=== PATIENT | female | born 1990 | race Two or more races ===

== ENCOUNTER 2024-01-26 21:04 | Emergency (ER) | payer SELFPAY ==
[~2024-01-26] VITALS: Ht 149.9 cm; Wt 68.2 kg
[2024-01-26 21:07] VITALS: TEMP 98.3
[2024-01-26 21:55] LABS: BASOPHILS % (AUTO) 0.8 % (0.0-2.0); HEMATOCRIT 39.1 % (36-46); LYMPHOCYTES # (AUTO) 2.9 K/uL (1.0-4.8); LYMPHOCYTES % (AUTO) 33.3 % (22.0-44.0); MEAN CORPUSCULAR HEMOGLOBIN 28.5 pg (26.0-34.0); MEAN CORPUSCULAR HGB CONC 33.4 G/dL (31.0-37.0); MEAN CORPUSCULAR VOLUME 86 fL (80-100); MONOCYTES # (AUTO) 0.8 K/uL (0.1-1.0); MONOCYTES % (AUTO) 8.8 % (2.0-9.0); NEUTROPHILS # (AUTO) 4.7 K/uL (1.8-7.7); NEUTROPHILS % (AUTO) 53.1 % (40.0-70.0); PLATELET COUNT (AUTO) 301 K/uL (150-450); RED BLOOD CELL COUNT(AUTO) 4.57 MIL/uL (4.00-5.20); RED CELL DISTRIBUTION WIDTH 14.7 % (11.5-14.5); WHITE BLOOD COUNT (AUTO) 8.9 K/uL (4.5-11.0)
[2024-01-26 22:03] LABS: APPEARANCE,URINE CLEAR (CLEAR); BILIRUBIN,URINE NEGATIVE (NEGATIVE); COLOR,URINE LIGHT YELLOW (YELLOW); GLUCOSE, URINE (UA) >=1000 mg/dL (NEGATIVE); KETONES,URINE TRACE mg/dL (NEGATIVE); LEUKOCYTE ESTERASE ,URINE NEGATIVE (NEGATIVE); NITRATE,URINE NEGATIVE (NEGATIVE); OCCULT BLOOD,URINE NEGATIVE (NEGATIVE); PH,URINE 6.5 (5.0-8.0); PROTEIN,URINE NEGATIVE (NEGATIVE); SPECIFIC GRAVITIY, URINE 1.039 (1.003-1.030); UROBILINOGEN,URINE <=1.0 mg/dL (<=1.0)
[2024-01-26 22:21] LABS: BACTERIA,URINE None Seen /HPF (None Seen); RBC,URINE 0-2 /HPF (0-2); WBC,URINE 0-2 /HPF (0-5)
[2024-01-26 22:54] LABS: ANION GAP 8 mmol/L (8-16); CALCIUM, TOTAL 9.4 mg/dL (8.8-10.5); CARBON DIOXIDE 28 mmol/L (22-29); CHLORIDE 95 mmol/L (98-107); CREATININE 0.84 mg/dL (0.60-1.30); GLOMERULAR FILTR. RATE CALC > 60 mL/min (>60); GLUCOSE,RANDOM 333 mg/dL (70-110); POTASSIUM 3.8 mmol/L (3.5-5.1); SODIUM SERUM 131 mmol/L (136-145); UREA NITROGEN, BLOOD 9 mg/dL (7-18)
[2024-01-26 22:59] LABS: ALANINE AMINOTRANSFERASE 20 U/L (12-78); ALBUMIN 3.4 g/dL (3.4-5.0); ALKALINE PHOSPHATASE 148 U/L (46-116); ASPARTATE AMINOTRANSFERASE 10 U/L (15-37); BILIRUBIN,TOTAL 0.2 mg/dL (0.1-1.0); LIPASE 35 U/L (16-77); TOTAL PROTEIN, SERUM 7.4 g/dL (6.4-8.2)
[2024-01-26] MEDS: KETOROLAC TROMETHAMINE 60 MG/2 ML VIAL IM ONE (23:10)
[2024-01-26 23:16] LABS: BILIRUBIN,DIRECT < 0.05 mg/dL (0.00-0.20)
[2024-01-27] VITALS: BP 111/70; PULSE 78; RESP 17; O2SAT 99
[2024-01-27] MEDS ORDERED: FAMO20 PO
[2024-01-27] MEDS ORDERED: IBUP-1492 PO
== END 2024-01-27 00:21 | disposition home or self-care (01) ==
LOC: EMS 21:04
DX: R10.84 Generalized abdominal pain (principal); Z98.890 Other specified postprocedural states; Z88.5 Allergy status to narcotic agent; R73.9 Hyperglycemia, unspecified
CPT/HCPCS: 99283; 80048; 80076; 81001; 82962; 83690; 84703; 85025; 36415; 96372; J1885

== ENCOUNTER 2024-02-14 10:43 | Emergency (ER) | payer OTHER ==
[~2024-02-14] VITALS: Ht 162.6 cm; Wt 68.2 kg
[~2024-02-14 10:43] MED LIST: FAMO20 PO; IBUP-1492 PO
[2024-02-14 11:25] VITALS: TEMP 97.9
[2024-02-14] MEDS: ONDANSETRON HCL 4 MG/2 ML VIAL IVP ONE (12:45)
[2024-02-14] MEDS: SODIUM CHLORIDE 0.9% 1,000 ML IV ONE (12:45)
[2024-02-14] MEDS: KETOROLAC TROMETHAMINE 30 MG/ML VIAL IVP ONE (12:45)
[2024-02-14 13:00] LABS: HEMATOCRIT 40.3 % (36-46); HEMOGLOBIN 13.8 g/dL (12.0-16.0); MEAN CORPUSCULAR HEMOGLOBIN 28.8 pg (26.0-34.0); MEAN CORPUSCULAR HGB CONC 34.4 G/dL (31.0-37.0); MEAN CORPUSCULAR VOLUME 84 fL (80-100); PLATELET COUNT (AUTO) 257 K/uL (150-450); RED BLOOD CELL COUNT(AUTO) 4.81 MIL/uL (4.00-5.20); RED CELL DISTRIBUTION WIDTH 14.9 % (11.5-14.5); WHITE BLOOD COUNT (AUTO) 10.7 K/uL (4.5-11.0)
[2024-02-14 13:15] LABS: ANION GAP 9 mmol/L (8-16); CALCIUM, TOTAL 8.1 mg/dL (8.8-10.5); CARBON DIOXIDE 25 mmol/L (22-29); CHLORIDE 100 mmol/L (98-107); CREATININE 0.67 mg/dL (0.60-1.30); GLOMERULAR FILTR. RATE CALC > 60 mL/min (>60); GLUCOSE,RANDOM 349 mg/dL (70-110); SODIUM SERUM 134 mmol/L (136-145); UREA NITROGEN, BLOOD 12 mg/dL (7-18)
[2024-02-14 13:19] LABS: APPEARANCE,URINE CLEAR (CLEAR); BILIRUBIN,URINE NEGATIVE (NEGATIVE); COLOR,URINE LIGHT YELLOW (YELLOW); GLUCOSE, URINE (UA) >=1000 mg/dL (NEGATIVE); KETONES,URINE 40-60 mg/dL (NEGATIVE); LEUKOCYTE ESTERASE ,URINE NEGATIVE (NEGATIVE); NITRATE,URINE NEGATIVE (NEGATIVE); OCCULT BLOOD,URINE MODERATE (NEGATIVE); PH,URINE 5.5 (5.0-8.0); PROTEIN,URINE NEGATIVE (NEGATIVE); SPECIFIC GRAVITIY, URINE 1.034 (1.003-1.030); UROBILINOGEN,URINE <=1.0 mg/dL (<=1.0)
[2024-02-14 13:25] VITALS: BP 98/62; PULSE 93; RESP 16; O2SAT 98
[2024-02-14 13:25] LABS: ALANINE AMINOTRANSFERASE 17 U/L (12-78); ALBUMIN 3.3 g/dL (3.4-5.0); ALKALINE PHOSPHATASE 134 U/L (46-116); ASPARTATE AMINOTRANSFERASE 14 U/L (15-37); BILIRUBIN,TOTAL 0.6 mg/dL (0.1-1.0); LIPASE 30 U/L (16-77); TOTAL PROTEIN, SERUM 7.4 g/dL (6.4-8.2)
[2024-02-14] MEDS ORDERED: OMEP20 PO (14:04)
[2024-02-14] MEDS ORDERED: ACET-66 PO (14:04)
[2024-02-14] MEDS ORDERED: ONDA-104 PO (14:04)
[2024-02-14] MEDS ORDERED: MAG30ORA11 PO (14:04)
[2024-02-14] MEDS: MAG HYDROX/ALUMINUM HYD/SIMETH ES 30 ML SUSPENSION UDCUP PO ONE (14:08)
[2024-02-14] MEDS: ACETAMINOPHEN 500 MG TABLET PO ONE (14:09)
[2024-02-14 14:11] LABS: BAND NEUTROPHILS % (MANUAL) 20 % (0-5); LYMPHOCYTES % (MANUAL) 2 % (22-44); MONOCYTES % (MANUAL) 6 % (2-9); SEGMENTED NEUTROPHILS % 72 % (40-70); TOTAL CELLS COUNTED 100
[2024-02-14] MEDS: INSULIN REGULAR, HUMAN 100 UNITS/ML IVP ONE (14:14)
[2024-02-14 14:18] LABS: SQUAMOUS EPITHELIAL CELL,UR Moderate /LPF (None Seen)
[2024-02-14 14:19] LABS: RBC,URINE 0-2 /HPF (0-2); YEAST,URINE Few /HPF (None Seen)
[2024-02-14 14:20] LABS: BACTERIA,URINE Moderate /HPF (None Seen)
[2024-02-14] MEDS: OMEPRAZOLE 20 MG CAPSULE PO ONE (14:30)
== END 2024-02-14 14:55 | disposition home or self-care (01) ==
LOC: EMS 10:43
DX: K29.70 Gastritis, unspecified, without bleeding (principal); E11.65 Type 2 diabetes mellitus with hyperglycemia; Z88.5 Allergy status to narcotic agent; Z98.890 Other specified postprocedural states
CPT/HCPCS: 99285; 96374; 76700; 96375; 96361; 80048; 80076; 81001; 82962; 83690; 84703; 85025; 87077; 87086; 36415; J1815; J1885; J2405; J7030

== ENCOUNTER 2024-03-07 07:10 | Emergency (ER) | payer OTHER ==
[~2024-03-07] VITALS: Ht 154.9 cm; Wt 68.2 kg
[~2024-03-07 07:10] MED LIST changes: +ACET-66 PO; -FAMO20 PO; +MAG30ORA11 PO; +OMEP20 PO; +ONDA-104 PO
[2024-03-07 07:31] VITALS: TEMP 98.2
[2024-03-07 10:27] LABS: BASOPHILS % (AUTO) 0.6 % (0.0-2.0); EOSINOPHILS % (AUTO) 2.4 % (1.0-6.0); LYMPHOCYTES # (AUTO) 1.7 K/uL (1.0-4.8); LYMPHOCYTES % (AUTO) 18.1 % (22.0-44.0); MEAN CORPUSCULAR HEMOGLOBIN 28.6 pg (26.0-34.0); MEAN CORPUSCULAR HGB CONC 34.1 G/dL (31.0-37.0); MEAN CORPUSCULAR VOLUME 84 fL (80-100); MONOCYTES # (AUTO) 0.4 K/uL (0.1-1.0); MONOCYTES % (AUTO) 4.3 % (2.0-9.0); NEUTROPHILS # (AUTO) 7.1 K/uL (1.8-7.7); NEUTROPHILS % (AUTO) 74.6 % (40.0-70.0); PLATELET COUNT (AUTO) 352 K/uL (150-450); RED CELL DISTRIBUTION WIDTH 14.7 % (11.5-14.5); WHITE BLOOD COUNT (AUTO) 9.6 K/uL (4.5-11.0)
[2024-03-07 10:37] LABS: ANION GAP 8 mmol/L (8-16); CALCIUM, TOTAL 9.1 mg/dL (8.8-10.5); CARBON DIOXIDE 29 mmol/L (22-29); CHLORIDE 95 mmol/L (98-107); CREATININE 0.78 mg/dL (0.60-1.30); GLOMERULAR FILTR. RATE CALC > 60 mL/min (>60); GLUCOSE,RANDOM 301 mg/dL (70-110); POTASSIUM 4.2 mmol/L (3.5-5.1); SODIUM SERUM 132 mmol/L (136-145); UREA NITROGEN, BLOOD 14 mg/dL (7-18)
[2024-03-07 10:48] LABS: HCG,QUANTITATIVE < 1 mIU/mL (0-6); LIPASE 28 U/L (16-77)
[2024-03-07] MEDS: ONDANSETRON HCL 4 MG/2 ML VIAL IVP ONE ×2 (11:22→14:29)
[2024-03-07] MEDS: MAG HYDROX/ALUMINUM HYD/SIMETH ES 30 ML SUSPENSION UDCUP PO ONE (11:23)
[2024-03-07] MEDS: SODIUM CHLORIDE 0.9% 2,050 ML IV ONE (11:23)
[2024-03-07 11:32] LABS: APPEARANCE,URINE CLEAR (CLEAR); BILIRUBIN,URINE NEGATIVE (NEGATIVE); COLOR,URINE LIGHT YELLOW (YELLOW); GLUCOSE, URINE (UA) >=1000 mg/dL (NEGATIVE); LEUKOCYTE ESTERASE ,URINE NEGATIVE (NEGATIVE); NITRATE,URINE NEGATIVE (NEGATIVE); OCCULT BLOOD,URINE NEGATIVE (NEGATIVE); PH,URINE 5.5 (5.0-8.0); PROTEIN,URINE TRACE mg/dL (NEGATIVE); UROBILINOGEN,URINE <=1.0 mg/dL (<=1.0)
[2024-03-07 11:34] LABS: BACTERIA,URINE Moderate /HPF (None Seen); RBC,URINE 0-2 /HPF (0-2); WBC,URINE 0-2 /HPF (0-5); YEAST,URINE Few /HPF (None Seen)
[2024-03-07 11:35] LABS: SQUAMOUS EPITHELIAL CELL,UR Moderate /LPF (None Seen)
[2024-03-07] MEDS: CIPROFLOXACIN HCL 250 MG TABLET PO ONE (13:08)
[2024-03-07] MEDS ORDERED: ONDA-104 PO (14:34)
[2024-03-07] MEDS ORDERED: MAG30ORA11 PO (14:34)
[2024-03-07 15:03] VITALS: BP 112/68; PULSE 65; RESP 18; O2SAT 97
== END 2024-03-07 15:04 | disposition home or self-care (01) ==
LOC: EMS 07:10
DX: R19.7 Diarrhea, unspecified (principal); R11.2 Nausea with vomiting, unspecified; E11.9 Type 2 diabetes mellitus without complications; Z88.5 Allergy status to narcotic agent; Z79.899 Other long term (current) drug therapy
CPT/HCPCS: 99284; 96374; 96361; 80048; 81001; 82962; 83690; 84702; 85025; 87086; 36415; J2405; J7030